=== PATIENT | female | born 1950 | race Caucasian/White ===

== ENCOUNTER → 2017-06-07 | Outpatient (CLI) | payer OTHER ==
[~2017-06-07] MED LIST: ASPIRIN325 PO; ESTROPIPATE 1.1.5 M1 PO; ZIAC 10/6.25 MG10 MG PO
== END ==
LOC: RAD 01:49
DX: Z12.31 Encounter for screening mammogram for malignant neoplasm of breast (principal)

== ENCOUNTER → 2018-06-10 | Outpatient (CLI) | payer OTHER | LOC: RAD 04:23 | DX: Z12.31 Encounter for screening mammogram for malignant neoplasm of breast (principal) ==

== ENCOUNTER → 2019-06-11 | Outpatient (CLI) | payer OTHER | LOC: RAD 01:29 | DX: Z12.31 Encounter for screening mammogram for malignant neoplasm of breast (principal) ==

== ENCOUNTER → 2020-06-24 | Outpatient (CLI) | payer OTHER | LOC: RAD 13:43 | PROVIDERS: ATTEND Internal Medicine | DX: Z12.31 Encounter for screening mammogram for malignant neoplasm of breast (principal) ==

== ENCOUNTER → 2020-06-28 | Outpatient (CLI) | payer OTHER | LOC: ULTRA 14:24 | PROVIDERS: ATTEND Internal Medicine | DX: N63.22 Unspecified lump in the left breast, upper inner quadrant (principal) ==

== ENCOUNTER → 2020-07-01 | Outpatient (CLI) | payer OTHER ==
--- NOTE | 2020-07-04 17:06 | PATH ---
[facility] [address] [place] [address] PATHOLOGY RPT PROCEDURE Name: NESTORSHABANA MAE Room #: REG DONIS Ledbetter.#: [id number] Admission: 07/01/20 Date of : 50 Discharge: Report #: [id number] Path Case #: [id number] [facility] Accession Number: [id number] . 01 Material submitted: . breast - LEFT BREAST 11:00 2CMFN. Modifiers: left, 11:00 . 01 Clinical history: . Left breast mass; liver cancer . 02 Diagnosis: Breast, left breast 11:00 2 cm from nipple, ultrasound guided needle core biopsy: - Benign breast tissue with nonproliferative fibrocystic changes including a few dilated ducts as well as dense stromal fibrosis. - Negative for hyperplasia or malignancy. (IUV/db; 07/04/2020) LBQ 07/04/2020 1315 Local . 02 Electronically signed: . Kari Zazueta MD, Pathologist NPI- [id number] . 01 Gross description: . The specimen is received in formalin, labeled "Shabana Navarrete, left breast 11:00 2 cm". Received are multiple needle cores of fibrofatty tissue measuring 2.5 x 1.6 x 0.4 cm in aggregate dimensions. The specimen is submitted entirely in cassettes A1 through A3. The cold ischemic time is less than 1 minute. The total formalin fixation time is 10 hours and 55 minutes. ([facility]; 07/01/2020) QAC/QAC 07/01/2020 1630 Local . 02 Pathologist provided ICD-10: N60.12, N60.32 . 02 CPT . 950503 Specimen Comment: A courtesy copy of this report has been sent to [phone], [phone] Specimen Comment: [phone] Specimen Comment: Report sent to / Performed at: [address] [id number] MD Lawson Cano MD Phone: [phone] Performed at: 02 [place] [address] PATHOLOGY RPT PROCEDURE Name: SHABANA NAVARRETE Room #: REG CL Adalid#: [id number] Admission: 07/01/20 Date of : 50 Discharge: Report #: [id number] Path Case #: [id number] [facility] [address], [place], [place] [id number] MD Kari Zazueta MD Phone: [phone]
== END | disposition home or self-care (01) ==
LOC: ULTRA 10:04
PROVIDERS: ATTEND Internal Medicine
DX: N60.32 Fibrosclerosis of left breast (principal); R92.1 Mammographic calcification found on diagnostic imaging of breast; I10 Essential (primary) hypertension; E78.00 Pure hypercholesterolemia, unspecified; Z98.890 Other specified postprocedural states; Z79.899 Other long term (current) drug therapy

== ENCOUNTER → 2021-07-06 | Outpatient (CLI) | payer OTHER | LOC: RAD 12:04 | PROVIDERS: ATTEND Internal Medicine | DX: Z12.31 Encounter for screening mammogram for malignant neoplasm of breast (principal); N64.89 Other specified disorders of breast; Z85.038 Personal history of other malignant neoplasm of large intestine ==